=== PATIENT | female | born 1945 | race Caucasian/White ===

== ENCOUNTER 2017-01-04 10:54 | Outpatient (RCR) | payer OTHER | END 2017-01-05 | disposition home or self-care (01) | LOC: PTY 10:54 | PROVIDERS: ATTEND Internal Medicine | DX: M54.41 Lumbago with sciatica, right side (principal); G89.29 Other chronic pain | CPT/HCPCS: 97140; 97162; G0283 ==

== ENCOUNTER 2017-01-18 10:00 | Outpatient (RCR) | payer OTHER | END 2017-02-04 | disposition home or self-care (01) | LOC: PTY 10:00 | PROVIDERS: ATTEND Internal Medicine | DX: M54.41 Lumbago with sciatica, right side (principal); G89.29 Other chronic pain | CPT/HCPCS: 97110; 97140; G0283 ==

== ENCOUNTER 2017-02-22 09:38 | Outpatient (RCR) | payer OTHER | END 2017-03-07 | disposition home or self-care (01) | LOC: PTY 09:38 | PROVIDERS: ATTEND Internal Medicine | DX: M54.41 Lumbago with sciatica, right side (principal); G89.29 Other chronic pain | CPT/HCPCS: 97110; 97140; G0283 ==

== ENCOUNTER 2017-03-29 10:00 | Outpatient (RCR) | payer OTHER | END 2017-04-07 | disposition home or self-care (01) | LOC: PTY 10:00 | PROVIDERS: ATTEND Internal Medicine | DX: M54.41 Lumbago with sciatica, right side (principal); G89.29 Other chronic pain | CPT/HCPCS: 97110; 97140; G0283 ==

== ENCOUNTER 2017-04-14 13:05 | Outpatient (RCR) | payer OTHER | END 2017-05-05 | disposition home or self-care (01) | LOC: PTY 13:05 | PROVIDERS: ATTEND Internal Medicine | DX: M54.41 Lumbago with sciatica, right side (principal); G89.29 Other chronic pain | CPT/HCPCS: 97110; 97140; G0283 ==

== ENCOUNTER 2017-05-10 10:00 | Outpatient (RCR) | payer OTHER | END 2017-06-05 | disposition home or self-care (01) | LOC: PTY 10:00 | PROVIDERS: ATTEND Internal Medicine | DX: M54.41 Lumbago with sciatica, right side (principal); G89.29 Other chronic pain | CPT/HCPCS: 97110; G0283 ==

== ENCOUNTER 2017-06-07 09:50 | Outpatient (RCR) | payer OTHER | END 2017-07-05 | disposition home or self-care (01) | LOC: PTY 09:50 | PROVIDERS: ATTEND Internal Medicine | DX: M54.41 Lumbago with sciatica, right side (principal) | CPT/HCPCS: 97032; 97110; G0283 ==